=== PATIENT | female | born 1950 | race Caucasian/White ===

== ENCOUNTER 2018-10-06 09:35 | Observation (INO) | payer OTHER ==
[2018-10-06 11:13] LABS: ADD MAN DIFF? NO
[2018-10-06 11:18] LABS: WHITE BLOOD COUNT 9.7 10^3/ul (4.8-10.8)
[2018-10-06 11:18] LABS: BASOPHILS % 0.3 % (0.0-2.0); EOSINOPHILS # 0.1 10^3/ul (0.0-0.5); EOSINOPHILS % 0.9 % (0.0-7.0); HEMATOCRIT 41.8 % (37.0-47.0); LYMPHOCYTES % 20.8 % (15.0-51.0); MEAN CORPUSCULAR HGB CONC 33.5 g/dl (32.0-37.0); MEAN CORPUSCULAR VOLUME 89.5 fl (82.0-101.0); MONOCYTE # 0.5 10^3/ul (0.3-0.9); MONOCYTES % 5.2 % (0.0-11.0); NEUTROPHILS % 71.7 % (39.0-77.0); PLATELET COUNT 262 10^3/UL (140-415); RED BLOOD COUNT 4.67 10^6/ul (4.20-5.40); RED CELL DISTRIBUTION WIDTH 13.2 % (11.5-14.5)
[2018-10-06 11:39] LABS: ANION GAP 10 (5-13); BLOOD UREA NITROGEN 21 mg/dl (7-20); CALCIUM 10.7 mg/dl (8.4-10.2); CARBON DIOXIDE 28 mmol/L (21-31); CHLORIDE 103 mmol/L (97-110); CREATININE 0.86 mg/dl (0.44-1.00); Estimated GFR > 60 mL/min (>60); GLUCOSE 117 mg/dl (70-220); POTASSIUM 4.1 mmol/L (3.5-5.1); SODIUM 141 mmol/L (135-144)
[2018-10-06 11:50] LABS: TROPONIN-I < 0.012 ng/ml (0.000-0.120)
[2018-10-06] MEDS ORDERED: ONDANSETRON 4 MG INJ IV (15:00)
[2018-10-06] MEDS ORDERED: morphine 2 MG INJ IV (15:00)
[2018-10-06] MEDS ORDERED: HYDROCODONE/APAP (5/325) TAB PO (15:00)
[2018-10-06] MEDS ORDERED: DOCUSATE SODIUM 100 MG CAP PO (15:00)
[2018-10-06] MEDS ORDERED: NITROGLYCERIN (SL) 0.4 MG TAB SL (15:00)
[2018-10-06] MEDS ORDERED: NACL 0.9% 3 ML SYG IV (15:00)
[2018-10-06] MEDS ORDERED: ZOLPIDEM 5 MG TAB PO (15:00)
[2018-10-06] MEDS: NS + KCL 20 MEQ 1,000 ML IV (15:30)
[2018-10-06 18:47] LABS: CREATINE KINASE 208 IU/L (23-200)
[2018-10-06 18:57] LABS: CK INDEX 0.9; CK-MB 1.89 ng/ml (0.0-2.4)
[2018-10-06 19:00] LABS: TROPONIN-I < 0.012 ng/ml (0.000-0.120)
[2018-10-07 01:24] LABS: CREATINE KINASE 187 IU/L (23-200)
[2018-10-07] MEDS: NS + KCL 20 MEQ 1,000 ML IV ×2 (01:30→11:10)
[2018-10-07 01:37] LABS: CK INDEX 0.8; CK-MB 1.57 ng/ml (0.0-2.4); TROPONIN-I < 0.012 ng/ml (0.000-0.120)
[2018-10-07 06:12] LABS: ADD MAN DIFF? NO
[2018-10-07 06:19] LABS: BASOPHIL # 0.1 10^3/ul (0.0-0.1); BASOPHILS % 0.6 % (0.0-2.0); EOSINOPHILS # 0.2 10^3/ul (0.0-0.5); HEMATOCRIT 36.8 % (37.0-47.0); HEMOGLOBIN 12.3 g/dl (12.0-16.0); MEAN CORPUSCULAR HGB CONC 33.4 g/dl (32.0-37.0); MEAN CORPUSCULAR VOLUME 89.8 fl (82.0-101.0); MEAN PLATELET VOLUME 10.2 fl (7.4-10.4); MONOCYTE # 0.6 10^3/ul (0.3-0.9); MONOCYTES % 7.5 % (0.0-11.0); NEUTROPHILS % 50.8 % (39.0-77.0); PLATELET COUNT 246 10^3/UL (140-415); RED CELL DISTRIBUTION WIDTH 13.3 % (11.5-14.5)
[2018-10-07 06:19] LABS: WHITE BLOOD COUNT 7.9 10^3/ul (4.8-10.8)
[2018-10-07 06:29] LABS: HEMOGLOBIN A1C 5.5 % (0-5.9)
[2018-10-07 06:38] LABS: ANION GAP 7 (5-13); BLOOD UREA NITROGEN 19 mg/dl (7-20); CALCIUM 9.7 mg/dl (8.4-10.2); CARBON DIOXIDE 28 mmol/L (21-31); CHLORIDE 106 mmol/L (97-110); CHOL/HDL RATIO 3.1 RATIO; CHOLESTEROL 182 mg/dl (100-200); CREATININE 0.83 mg/dl (0.44-1.00); Estimated GFR > 60 mL/min (>60); GLUCOSE 105 mg/dl (70-220); HDL CHOLESTEROL 57 mg/dl (35-98); LDL CHOLESTEROL,CALCULATED 105 mg/dl; MAGNESIUM 2.1 mg/dl (1.7-2.5); POTASSIUM 3.8 mmol/L (3.5-5.1); SODIUM 141 mmol/L (135-144); TRIGLYCERIDES 100 mg/dl (0-149)
[2018-10-07] MEDS: LISINOPRIL 20 MG TAB PO (08:18)
[2018-10-07] MEDS: HYDROCHLOROTHIAZIDE 12.5 MG CAP PO (08:18)
[2018-10-07] MEDS: METOPROLOL (XL) 50 MG TAB PO (08:19)
[2018-10-07] MEDS: ENOXAPARIN 40 MG/0.4 ML SYG SC (08:25)
[2018-10-07] MEDS ORDERED: NON-FORMULARY/PATIENT OWN MED (Lisinopril/Hydrochlorothiazide (Lisinopril-Hctz 20-12.5 mg PO (09:00)
[2018-10-07] MEDS: ACETAMINOPHEN 325 MG TAB PO (14:05)
[2018-10-08] MEDS ORDERED: ASPIRIN 81 MG TAB PO (09:00)
== END 2018-10-07 14:40 | disposition home or self-care (01) ==
LOC: 6WM 18:51 → E/R 09:35 → 6WM 12:06
DX: R07.9 Chest pain, unspecified (principal); I10 Essential (primary) hypertension; F41.9 Anxiety disorder, unspecified; K21.9 Gastro-esophageal reflux disease without esophagitis
CPT/HCPCS: 71045; 80048; 80061; 82550; 82553; 83036; 83735; 84484; 85025; 93005; 93306; 99285-25; G0378